=== PATIENT | female | born 1995 | race Caucasian/White ===

== ENCOUNTER 2016-05-13 15:00 | Emergency (ER) | payer MEDICAID, OTHER ==
[2016-05-13] MEDS ORDERED: DIPHENHYDRAMINE 50 MG/ML VIAL ONE (21:21)
[2016-05-13] MEDS ORDERED: ACETAMINOPHEN 325 MG TAB ONE (21:21)
[2016-05-13] MEDS ORDERED: ONDANSETRON 4 MG VIAL ONE (21:21)
[2016-05-13] MEDS ORDERED: SODIUM CHLORIDE 0.9% 1,000 ML ONE (21:21)
== END 2016-05-13 23:14 | disposition home or self-care (01) ==
LOC: ER 15:00
DX: O23.42 Unspecified infection of urinary tract in pregnancy, second trimester (principal); Z3A.14 14 weeks gestation of pregnancy
CPT/HCPCS: 36415; 80048; 81001; 84702; 85025; 86901; 87077; 87088; 87186; 87491; 87591; 87800; 96361; 96374; 96375